=== PATIENT | female | born 1945 | race Caucasian/White ===

== ENCOUNTER 2017-03-03 15:32 | Emergency (ER) | payer MEDICARE, OTHER ==
--- NOTE | ~2017-03-03 | CT2 ---
[facility] A Service of [facility] RADIOLOGY TEXT RESULTS PATIENT: TIFFANIE BLAKELY A LOCATION: [facility] – [place] : 47 UNIT #: [id number] AGE: [address]: Christiano Gomez MD SEX: F ORDER DR: [id number] [place] [id number] MR#: [id number] Acc #: [id number] NAME: TIFFANIE BLAKELY : 1945 SEX: F STUDY DATE/TIME: 03/03/2017 16:27 UNIT: SED ROOM: STUDY DESCRIPTION: CT Abd and Pelv W Cont Attending Physician: Christiano Gomez M.D. Ordering Physician: Christiano Gomez M.D. Primary Care Physician: Jessica Wang M.D. MEDICAL IMAGING REPORT This report is preliminary unless electronic signature is present. EXAM CT abdomen and pelvis with IV contrast DATE OF STUDY 03/03/[address] abdomen and pelvis with IV contrast and multiplanar reformats. This CT exam was performed with one or more of the following radiation dose reduction techniques: automatic exposure control, adjustment of mA and/or kV according to patient size, and iterative reconstruction. COMPARISON None HISTORY Nausea, vomiting and abdominal pain since this morning. FINDINGS The lung bases are unremarkable. Abdomen: There is a tiny amount of perihepatic ascites. There is intrahepatic biliary ductal dilatation, marked distension of the gallbladder, and dilatation of the common duct down to the level of the ampulla. Calcifications in pancreatic uncinate process suggests an element of chronic pancreatitis. No hepatic mass is seen and the spleen is normal. There is marked bilateral adrenal hyperplasia. The kidneys are unremarkable except for a large left upper pole simple cyst about 4.5 cm in maximal dimension. The aorta is normal in caliber. There are dilated loops of small bowel in the central and lower abdomen. These extend down into the pelvis. The findings suggest a possible closed loop obstruction. The distal small bowel is decompressed. There is gas [facility] A Service of [facility] RADIOLOGY TEXT RESULTS PATIENT: TIFFANIE BLAKELY A LOCATION: SED : 47 UNIT #: [id number] AGE: [address]: Christiano Gomez MD SEX: F ORDER DR: and stool in the colon suggesting a early small bowel obstruction. In the pelvis there is extensive diverticulosis, a tiny amount of ascites, but no loculated fluid collection. There are spinal degenerative changes but no fracture or bone erosion or destruction. IMPRESSION Multiple abnormalities. In addition to a small amount of ascites, there are markedly dilated loops of mid small bowel. There appears to be a fairly discrete transition zone in the right lower quadrant just at the upper margin of the pelvis. There may be a small window through which both ends of the obstruction passed suggesting the possibly of a closed loop obstruction. The most proximal small bowel and distal small bowel are decompressed. In addition and probably separate, is a markedly distended gallbladder and central and intrahepatic biliary ductal dilatation and dilatation of the extrahepatic common duct down to the level of the ampulla with some calcifications in the pancreatic uncinate process suggesting chronic pancreatitis. There is marked bilateral adrenal hyperplasia. While there is minimal pelvic and perihepatic ascites, there is no evidence of abscess or free air. Dictated by... Fransisco Morales M.D. THIS IS AN ELECTRONICALLY VERIFIED REPORT Fransisco Morales M.D. at 03/07/2017 11:22 AM TEV/to TD: 03/03/2017 18:39 JOB #: [id number] MEDICAL IMAGING REPORT Page 1 of 1
[~2017-03-03 15:32] MED LIST: ASPIRIN PO; FERROUS GLUCON324 MG PO; FERROUS GLUCON325 M1 PO; GLUCOPHAGE XR500 MG PO; HYDROCODON-ACE1 EAC7 PO; KETOPROFEN PO; LISINOPRIL PO; MACROBID100 MG PO; NIASPAN PO; PLETAL50 MG PO; PRAVACHOL; PRILOSEC20 M1; REQUIP0.25 MG; VITAMIN C500 M1; VITAMIN D1000 UNI2; WELLBUTRIN PO; WELLBUTRIN XL PO; ZOCOR20 MG PO; [UNRECOGNIZED DRUG - SUPPLY] PO
[2017-03-03 16:03] LABS: URINE SOURCE CLEAN CATCH
[2017-03-03 16:06] LABS: URINE APPEARANCE CLEAR; URINE BILIRUBIN NEG (NEG); URINE BLOOD NEG (NEG); URINE COLOR YELLOW; URINE GLUCOSE NEG (NORM); URINE KETONE NEG (NEG); URINE LEUKOCYTE ESTERASE 1+ (NEG); URINE NITRATE NEG (NEG); URINE PROTEIN NEG (NEG); URINE SPECIFIC GRAVITY 1.025 (1.003-1.035); URINE UROBILINOGEN 0.2 MG/DL (NORM)
[2017-03-03 16:07] LABS: BASOPHIL# 0.1 X10e3 (0-0.3); BASOPHIL% 1.1 % (0-2.5); EOSINOPHIL% 0.2 % (0.0-7.0); HEMATOCRIT 39.4 % (35.0-45.0); HEMOGLOBIN 12.6 gm/dL (12.0-16.0); LYMPHOCYTE# 0.9 X10e3 (1.0-3.5); LYMPHOCYTE% 8.5 % (17.0-45.0); MEAN CELL VOLUME 92.4 FL (83-96); MEAN CORPUSCULAR HEMOGLOBIN 29.5 PG (28-34); MEAN PLATELET VOLUME 7.7 FL (6.5-11.5); MONOCYTE# 0.2 X10e3 (0-1.0); MONOCYTE% 1.6 % (3.0-12.0); NEUTROPHIL# 9.1 X10e3 (1.5-7.1); NEUTROPHIL% 88.6 % (40-75); PLATELET COUNT 336 X10e3 (140-420); RED BLOOD COUNT 4.26 X10e (3.90-5.30); RED CELL DISTRIBUTION WIDTH 14.7 % (11.0-15.5); WHITE BLOOD COUNT 10.3 X10e3 (4.0-10.5)
[2017-03-03 16:08] LABS: DIFF IND NO; MICRO INDICATED? YES
[2017-03-03 16:15] LABS: POC - CKMB 2.8 ng/mL (0.0-7.9); POC - TROPONIN <0.05 ng/mL (<=0.05)
[2017-03-03 16:19] LABS: CULTURE INDICATED? YES; URINE BACTERIA 1+ (NEG); URINE RBC 0-2 /[HPF] (0-2); URINE SQUAMOUS EPITHELIAL CELL MODERATE /[HPF]
[2017-03-03 16:20] LABS: URINE GRANULAR CAST 0-2 /[HPF]; URINE HYALINE CAST 0-2 /[HPF]; URINE MUCUS PRESENT; URINE YEAST PRESENT
[2017-03-03 16:26] LABS: ALBUMIN SERUM 4.5 g/dL (3.5-5.0); BILIRUBIN, DIRECT 0.1 mg/dL (0.0-0.2); BILIRUBIN,INDIRECT 0.2 mg/dL (0.0-0.9); BILIRUBIN,TOTAL 0.3 mg/dL (0.2-2.0); BUN/CREATININE RATIO 29.09; CALCIUM SERUM 9.9 mg/dL (8.4-10.2); CREATININE SERUM 1.1 mg/dL (0.6-1.4); GLOM FILT RATE Estimated 50.8 mL/min (>60); POTASSIUM 4.5 mmol/L (3.5-5.1); PROTEIN TOTAL SERUM 7.9 g/dL (6.0-8.3)
== END 2017-03-03 20:20 ==
LOC: SED 15:32
PROVIDERS: Emergency Medicine
DX: K80.50 Calculus of bile duct without cholangitis or cholecystitis without obstruction (principal); K56.60 Unspecified intestinal obstruction; Z79.84 Long term (current) use of oral hypoglycemic drugs; D64.9 Anemia, unspecified; E78.5 Hyperlipidemia, unspecified; E11.9 Type 2 diabetes mellitus without complications; F17.200 Nicotine dependence, unspecified, uncomplicated; Z88.8 Allergy status to other drugs, medicaments and biological substances; Z79.899 Other long term (current) drug therapy
CPT/HCPCS: 36415; 74177; 80048; 80076; 81003; 82553; 83690; 84484; 85025; 87086; 93005; 96361; 96374; 96375; 99285; J2270; J2405; J2543; Q9967